=== PATIENT | male | born 1940 | race Hispanic/Latino ===

== ENCOUNTER 2018-02-02 05:00 | Emergency (ER) | payer OTHER, BC ==
[2018-02-02] MEDS ORDERED: NA CHLORIDE 0.9% 1,000 ML ONE (05:41)
[2018-02-02] MEDS ORDERED: CLINDAMYCIN 900MG/D5W 900 MG/50 ML IVPB IV ONE (05:41)
[2018-02-02] MEDS ORDERED: METHYLPREDNISOLONE 125 MG INJ ONE (05:41)
[2018-02-02 06:08] LABS: Absolute Lymphocytes (CBC) 1.8 K/uL (0.7-4.9); Absolute Monocytes 0.6 K/uL (0.1-1.3); Absolute Neutrophil 7.2 K/uL (1.8-8.0); Basophils % 0.9 % (0-1.3); Eosinophils % 3.7 % (0-4.4); Hematocrit 37.6 % (39.6-49.0); Lymphocytes % 18.2 % (15.3-44.8); MCH 32.1 pg (27.0-35.0); MCV 94.8 fL (80-100); Monocytes % 6.1 % (3.3-12.3); RBC Red Blood Cell Count 3.96 M/uL (4.33-5.43)
[2018-02-02 06:15] LABS: Potassium 4.3 mmol/L (3.5-5.1)
--- NOTE | 2018-02-02 06:27 | EDPHYS ---
Physician Documentation [facility] Name: Bernardo Downs Jr Age: 77 yrs Sex: Male : 1940 Arrival Date: 02/02/2018 Time: 05:03 Bed 17 Private MD: ED Physician Torrey Gaytan HPI: 02/02 06:04 This 77 yrs old Male presents to ER via Ambulatory with complaints of F, Feel pkl like throat is closing. 06:04 The patient presents with sore throat. The patient describes throat pain as raw. Onset: pkl The symptoms/episode began/occurred just prior to arrival, 3 hour(s) ago. Historical: - Allergies: 05:23 PENICILLINS; ak1 - Home Meds: 05:23 Metoprolol Tartrate Oral [Active]; glipizide 5 mg Oral tr24 2 tabs once daily [Active]; ak1 lisinopril 40 mg Oral tab 1 tab once daily [Active]; - PMHx: 05:23 Diabetes - NIDDM; Hypertension; Hyperlipidemia; ak1 - Immunization history:: Adult Immunizations unknown. - Social history:: Smoking status: Patient/guardian denies using tobacco. - Ebola Screening: : No symptoms or risks identified at this time. ROS: 06:04 Eyes: Negative for injury, pain, redness, and discharge. pkl 06:04 ENT: Positive for sore throat. 06:04 Neck: Negative for stiffness. 06:04 Cardiovascular: Negative for chest pain. 06:04 Respiratory: Negative for cough, shortness of breath. 06:04 Abdomen/GI: Negative for abdominal pain, nausea, vomiting, and diarrhea. 06:04 Back: Negative for acute changes. 06:04 : Negative for urinary symptoms. 06:04 MS/extremity: Negative for acute changes. 06:04 Skin: Negative for rash. 06:04 Neuro: Negative for altered mental status. Exam: 06:04 Head/Face: Normocephalic, atraumatic. Eyes: Pupils equal round and reactive to light, pkl extra-ocular motions intact. Lids and lashes normal. Conjunctiva and sclera are non-icteric and not injected. Cornea within normal limits. Periorbital areas with no swelling, redness, or edema. 06:04 ENT: Posterior pharynx: Uvula: edematous, erythema. 06:04 Neck: Exam negative for acute changes, nuchal rigidity. 06:04 Chest/axilla: Exam negative for acute changes. 06:04 Cardiovascular: Rate: normal, Rhythm: regular. 06:04 Respiratory: the patient does not display signs of respiratory distress, Respirations: normal, Breath sounds: are clear throughout. 06:04 Abdomen/GI: Exam negative for acute changes. 06:04 Back: Exam negative for acute changes. 06:04 : Exam negative for acute changes. 06:04 Musculoskeletal/extremity: Exam is negative for acute changes. 06:04 Skin: Exam negative for rash. 06:04 Neuro: Orientation: is normal, Mentation: is normal, Cranial nerves: grossly normal, Motor: is normal. Vital Signs: 05:23 BP 157 / 70; Pulse 70; Resp 18; Temp 98.6(O); Pulse Ox 98% on R/A; Weight 102.97 kg ak1 (R); Height 5 ft. 8 in. (172.72 cm) (R); Pain 6/10; 06:08 BP 152 / 76; Pulse 66; Resp 16; Temp 98.5; Pulse Ox 97% on R/A; Pain 3/10; ak1 05:23 Body Mass Index 34.51 (102.97 kg, 172.72 cm) ak1 MDM: 05:29 Patient medically screened. pkl 06:24 Data reviewed: vital signs, nurses notes, lab test result(s). pkl 02/02 05:31 Order name: CBC with Diff; Complete Time: 06:29 pkl 02/02 05:31 Order name: Chem 7; Complete Time: 06:17 pkl 02/02 05:31 Order name: Sed Rate; Complete Time: 06:29 pkl Administered Medications: 05:44 Drug: NS 0.9% 1000 ml Route: IV; Rate: 125 ml/hr; Site: right antecubital; ak1 06:29 Follow up: IV Status: Order to discontinue infusion ak1 05:44 Drug: SOLU-Medrol 125 mg Route: IVP; Site: right antecubital; ak1 06:01 Follow up: Response: No adverse reaction ak1 05:44 Drug: Clindamycin 900 mg Route: IVPB; Infused Over: 30 mins; Site: right antecubital; ak1 06:07 Follow up: IV Status: Completed infusion ak1 Disposition: 02/02/18 06:26 Discharged to Home. Impression: Acute Uvuitis. - Condition is Stable. - Prescriptions for Clindamycin HCl 300 mg Oral Capsule - take 1 capsule by ORAL route every 6 hours for 7 days; 28 capsule. - Medication Reconciliation Form, Thank You Letter, Antibiotic Education, Prescription Opioid Use form. - Follow up: Private Physician; When: 2 - 3 days; Reason: Re-evaluation by your physician. - Problem is new. - Symptoms have improved. Signatures: Dispatcher [employer] EDMS Torrey Gaytan MD MD pkl Eri Jarrell, RN RN ak1 Corrections: (The following items were deleted from the chart) 06:33 06:26 02/02/2018 06:26 Discharged to Home. Impression: Acute Uvuitis. Condition is ak1 Stable. Forms are Medication Reconciliation Form, Thank You Letter, Antibiotic Education, Prescription Opioid Use. Follow up: Private Physician; When: 2 - 3 days; Reason: Re-evaluation by your physician. Problem is new. Symptoms have improved. pkl
--- NOTE | 2018-02-02 06:27 | ER ---
Nurse's Notes [facility] Name: Bernardo Downs Jr Age: 77 yrs Sex: Male : 1940 Arrival Date: 02/02/2018 Time: 05:03 Bed 17 Private MD: Diagnosis: Acute Uvuitis Presentation: 02/02 05:19 Presenting complaint: Patient states: throat pain started at 2300 last night. pt with ak1 redness noted and swollen uvula upon triage. Transition of care: patient was not received from another setting of care. Onset of symptoms was February 01, 2018 at 23:00. Risk Assessment: Do you want to hurt yourself or someone else? Patient reports no desire to harm self or others. Initial Sepsis Screen: Does the patient meet any 2 criteria? No. Patient's initial sepsis screen is negative. Does the patient have a suspected source of infection? No. Patient's initial sepsis screen is negative. Care prior to arrival: None. 05:19 Method Of Arrival: Ambulatory ak1 05:19 Acuity: BECKY 3 ak1 Triage Assessment: 05:23 General: Appears in no apparent distress. Behavior is calm, cooperative. Pain: ak1 Complains of pain in throat. EENT: Throat is reddened with gag reflex present, uvula swelling. Neuro: No deficits noted. Cardiovascular: No deficits noted. Respiratory: No deficits noted. GI: No signs and/or symptoms were reported involving the gastrointestinal system. : No signs and/or symptoms were reported regarding the genitourinary system. Derm: No signs and/or symptoms reported regarding the dermatologic system. Musculoskeletal: No signs and/or symptoms reported regarding the musculoskeletal system. Historical: - Allergies: 05:23 PENICILLINS; ak1 - Home Meds: 05:23 Metoprolol Tartrate Oral [Active]; glipizide 5 mg Oral tr24 2 tabs once daily [Active]; ak1 lisinopril 40 mg Oral tab 1 tab once daily [Active]; - PMHx: 05:23 Diabetes - NIDDM; Hypertension; Hyperlipidemia; ak1 - Immunization history:: Adult Immunizations unknown. - Social history:: Smoking status: Patient/guardian denies using tobacco. - Ebola Screening: : No symptoms or risks identified at this time. Screenin:25 Abuse screen: Denies threats or abuse. Denies injuries from another. Nutritional ak1 screening: No deficits noted. Tuberculosis screening: No symptoms or risk factors identified. Fall Risk None identified. Assessment: 05:25 Reassessment: Patient appears in no apparent distress at this time. No changes from ak1 previously documented assessment. Patient and/or family updated on plan of care and expected duration. Pain level reassessed. Patient is alert, oriented x 3, equal unlabored respirations, skin warm/dry/pink. see triage assessment. 06:07 Reassessment: Patient appears in no apparent distress at this time. No changes from ak1 previously documented assessment. Patient states feeling better. Patient states symptoms have improved. provider notified pt stated he feels better and "can swallow again" . Vital Signs: 05:23 BP 157 / 70; Pulse 70; Resp 18; Temp 98.6(O); Pulse Ox 98% on R/A; Weight 102.97 kg ak1 (R); Height 5 ft. 8 in. (172.72 cm) (R); Pain 6/10; 06:08 BP 152 / 76; Pulse 66; Resp 16; Temp 98.5; Pulse Ox 97% on R/A; Pain 3/10; ak1 05:23 Body Mass Index 34.51 (102.97 kg, 172.72 cm) ak1 ED Course: 05:03 Patient arrived in ED. es 05:15 Eri Jarrell, RN is Primary Nurse. ak1 05:22 Triage completed. ak1 05:23 Arm band placed on Patient placed in an exam room, on a stretcher, on pulse oximetry, ak1 Patient notified of wait time. 05:25 Patient has correct armband on for positive identification. Bed in low position. Call ak1 light in reach. Side rails up X 1. Adult w/ patient. Pulse ox on. NIBP on. 05:29 Torrey Gaytan MD is Attending Physician. pkl 05:45 Initial lab(s) drawn, by me, sent to lab. Inserted saline lock: 20 gauge in right ak1 antecubital area, using aseptic technique. Blood collected. 06:08 No provider procedures requiring assistance completed. ak1 06:30 IV discontinued, intact, bleeding controlled, No redness/swelling at site. Pressure ak1 dressing applied. Administered Medications: 05:44 Drug: NS 0.9% 1000 ml Route: IV; Rate: 125 ml/hr; Site: right antecubital; ak1 06:29 Follow up: IV Status: Order to discontinue infusion ak1 05:44 Drug: SOLU-Medrol 125 mg Route: IVP; Site: right antecubital; ak1 06:01 Follow up: Response: No adverse reaction ak1 05:44 Drug: Clindamycin 900 mg Route: IVPB; Infused Over: 30 mins; Site: right antecubital; ak1 06:07 Follow up: IV Status: Completed infusion ak1 Outcome: 06:21 Condition: improved ak1 06:26 Discharge ordered by . pkluis alfredo 06:30 Discharged to home ambulatory, with family. ak1 06:30 Discharge instructions given to patient, family, Instructed on discharge instructions, follow up and referral plans. no drinking with medication, no driving heavy equipment, medication usage, Demonstrated understanding of instructions, follow-up care, medications, Prescriptions given X 2. 06:33 Patient left the ED. ak1 Signatures: Torrey Gaytan MD MD pkl Salyer, Edna es Krenek, Amber, RN RN ak1
== END 2018-02-02 06:33 | disposition home or self-care (01) ==
LOC: ER 05:00
DX: K12.2 Cellulitis and abscess of mouth (principal); E11.9 Type 2 diabetes mellitus without complications; I10 Essential (primary) hypertension; Z79.84 Long term (current) use of oral hypoglycemic drugs; Z79.899 Other long term (current) drug therapy
CPT/HCPCS: 36415; 80048; 85025; 85652; 96361; 96365; 96375; 99284; J2930; J7030

== ENCOUNTER → 2023-03-30 | Emergency (ER) | payer OTHER, BC ==
[~2023-03-30] MED LIST: FENTANYL CITR 100 MCG/2 ML ONE; IBUPROFEN 400 MG TAB ONE
--- NOTE | 2023-03-30 18:17 | RAD REPORT ---
EXAM DESCRIPTION: RAD - Elbow Left 3 View - 03/30/2023 6:05 pm CLINICAL HISTORY: Left elbow pain FINDINGS: No fracture or dislocation is seen. Several bony/calcific densities along the medial aspect of the elbow have a sclerotic border and appe ar chronic
--- NOTE | 2023-03-30 18:18 | RAD REPORT ---
EXAM DESCRIPTION: RAD - Shoulder Left 2 View - 03/30/2023 6:05 pm CLINICAL HISTORY: Left shoulder pain status post fall FINDINGS: No fracture or dislocation is seen. Osteoporosis
--- NOTE | 2023-03-30 18:41 | RAD REPORT ---
EXAM DESCRIPTION: RAD - Wrist Left 3 View - 03/30/2023 6:05 pm CLINICAL HISTORY: Left wrist pain status post injury FINDINGS: Mildly to moderately displaced fracture involves the distal radius. Bony/calcific densities within the wrist appear chronic No dislocation is seen
--- NOTE | 2023-03-30 18:56 | EDPHYS ---
Physician Documentation [facility] Name: Bernardo Downs Jr Age: 82 yrs Sex: Male : 1940 Arrival Date: 03/30/2023 Time: 15:57 Bed [id number] Private MD: ED Physician Nghia Cooper HPI: 03/30 17:05 This 82 yrs old Male presents to ER via Ambulatory with complaints of Fall cp Injury. 17:05 The patient or guardian complains of injury, pain, that is acute. The complaints affect cp the left wrist and left shoulder. 17:05 Context: resulted from a fall, after losing balance. Onset: The symptoms/episode cp began/occurred just prior to arrival. Treatment prior to arrival includes: no previous treatment. Associated signs and symptoms: Pertinent positives: decreased range of motion, deformity, Pertinent negatives: striking head, LOC. Patient reports history of left wrist fracture in the past. Historical: - Allergies: 16:35 PENICILLINS; nj1 - PMHx: 16:35 Diabetes - NIDDM; Hyperlipidemia; Hypertension; nj1 - Immunization history:: Client reports receiving the 2nd dose of the Covid vaccine. - Social history:: Smoking status: Patient denies any tobacco usage or history of. ROS: 17:10 Constitutional: Negative for body aches, chills, fever, poor PO intake, cp 17:10 Neck: Negative for pain with movement, pain at rest, stiffness, cp 17:10 Cardiovascular: Negative for chest pain, palpitations, 17:10 Respiratory: Negative for cough, shortness of breath, wheezing, 17:10 Abdomen/GI: Negative for abdominal pain, nausea, vomiting, and diarrhea, 17:10 Back: Negative for pain at rest, pain with movement, 17:10 MS/extremity: Positive for injury or acute deformity, decreased range of motion, pain, tenderness, of the left wrist, left shoulder pain, 17:10 Neuro: Negative for altered mental status, headache, numbness, syncope, weakness, 17:10 All other systems are negative, Exam: 17:15 Constitutional: The patient appears in no acute distress, alert, awake, non-toxic, well cp developed, well nourished, uncomfortable, 17:15 Head/Face: Normocephalic, atraumatic. cp 17:15 Eyes: Periorbital structures: appear normal, Conjunctiva: normal, no exudate, no injection, Lids and lashes: appear normal, bilaterally, 17:15 ENT: External ear(s): are unremarkable, Nose: is normal, Mouth: Lips: moist, Oral mucosa: moist, Posterior pharynx: Airway: no evidence of obstruction, patent, 17:15 Neck: ROM/movement: is normal, is supple, without pain, no range of motions limitations, 17:15 Chest/axilla: Inspection: normal, Palpation: is normal, no crepitus, no tenderness, 17:15 Cardiovascular: Rate: normal, Rhythm: regular, Pulses: Pulses are 2+ in left radial artery. 17:15 Respiratory: the patient does not display signs of respiratory distress, Respirations: normal, no use of accessory muscles, no retractions, labored breathing, is not present, Breath sounds: are clear throughout, no decreased breath sounds, no stridor, no wheezing, 17:15 Abdomen/GI: Exam negative for discomfort, distension, guarding, Inspection: abdomen appears normal, 17:15 Back: pain, is absent, ROM is normal, 17:15 Musculoskeletal/extremity: Extremities: grossly normal except: noted in the left wrist: decreased ROM, deformity, pain, swelling, tenderness, noted in the left shoulder: pain, tenderness, no evidence of decreased ROM, deformity, 17:15 Neuro: Orientation: to person, place \T\ time. Mentation: is normal, Motor: moves all fours, strength is normal, Sensation: is normal, Vital Signs: 16:31 BP 133 / 72; Pulse 81; Resp 18; Temp 98.2(TE); Pulse Ox 97% ; Weight 101.6 kg; Height 5 nj1 ft. 8 in. ; Pain 8/10; 19:00 BP 141 / 67; Pulse 75; Resp 16; Pulse Ox 97% ; bp 16:31 Body Mass Index 34.06 (101.60 kg, 172.72 cm) nj1 16:31 Pain Scale: Adult nj1 Procedures: 19:00 Splinting: Splint applied to left wrist using Orthoglass splint, sugartong type. cp applied by nurse. Examined by me, post splint application: neurovascular intact, Patient tolerated well. MDM: 16:50 Patient medically screened. cp 18:00 Differential diagnosis: dislocation, open fracture, closed fracture, contusion, tendon cp injury. 18:55 Data reviewed: vital signs, nurses notes, radiologic studies, plain films. cp 18:55 I considered the following discharge prescriptions or medication management in the cp emergency department Medications were administered in the Emergency Department. See MAR. Care significantly affected by the following chronic conditions: Diabetes, Hypertension. Counseling: I had a detailed discussion with the patient and/or guardian regarding the historical points, exam findings, and any diagnostic results supporting the discharge/admit diagnosis, radiology results, the need for outpatient follow up, for definitive care, a orthopedic surgeon, to return to the emergency department if symptoms worsen or persist or if there are any questions or concerns that arise at home. Response to treatment: the patient's symptoms have markedly improved after treatment, and as a result, I will discharge patient. 03/30 16:56 Order name: XRAY Wrist LEFT 3 view; Complete Time: 18:55 03/30 18:55 Interpretation: Report reviewed. 03/30 16:56 Order name: XRAY Shoulder LEFT 2 view; Complete Time: 18:55 03/30 16:56 Order name: XRAY Elbow LEFT 3 view; Complete Time: 18:55 03/30 16:56 Order name: IV Saline Lock; Complete Time: 17:28 03/30 18:31 Order name: Splint - Sugar Tong - Forearm; Complete Time: 19:14 cp 03/30 18:31 Order name: Sling; Complete Time: 19:14 cp Administered Medications: 18:14 Drug: fentaNYL (PF) IVP 25 mcg IVP once Route: IVP; Site: right antecubital; nj1 18:45 Follow up: Response: No adverse reaction bp 19:06 Drug: fentaNYL (PF) IVP 25 mcg IVP once Route: IVP; Site: right antecubital; hb 19:41 Follow up: Response: No adverse reaction; Marked relief of symptoms; RASS: Alert and lg3 Calm (0) 19:39 Drug: Ibuprofen PO 800 mg PO once Route: PO; lg3 19:39 Follow up: Response: No adverse reaction lg3 Disposition Summary: 03/30/23 18:56 Discharge Ordered Notes: Location: Home cp Problem: new cp Symptoms: have improved cp Condition: Stable cp Diagnosis - Left Distal Radius Fracture cp Followup: cp - With: Christopher Rivers MD - When: 2 - 3 days - Reason: Recheck today's complaints Followup: cp - With: Randall Salas MD - When: 2 - 3 days - Reason: Recheck today's complaints Discharge Instructions: - Discharge Summary Sheet cp - Wrist Fracture Treated With Immobilization cp Forms: - Medication Reconciliation Form cp - Thank You Letter cp - Antibiotic Education cp - Prescription Opioid Use cp - Patient Portal Instructions cp - Leadership Thank You Letter cp Prescriptions: - acetaminophen-codeine 300-30 mg Oral tablet - take 2 tablet ORAL route every 8-12 hours; 20 tablet; Refills: 0, Product cp Selection Permitted - Ibuprofen 800 mg Oral Tablet - take 1 tablet ORAL route every 8 hours As needed take with food; 30 tablet; cp Refills: 0, Product Selection Permitted Signatures: Dispatcher [employer] EDMS Nghia Pearson PA PA cp Giselle Olsen, RN RN Lima Mcdaniel RN RN lg3 Wilma Lay RN RN nj1 Cristóbal Hearn RN bp
--- NOTE | 2023-03-30 18:56 | ER ---
Nurse's Notes [facility] Name: Bernardo Downs Jr Age: 82 yrs Sex: Male : 1940 Arrival Date: 03/30/2023 Time: 15:57 Bed [id number] Private MD: Diagnosis: Left Distal Radius Fracture Presentation: 03/30 16:31 Chief complaint: Patient states: Fell while twisted, complains of left wrist pain. [facility] Coronavirus screen: Vaccine status: Patient reports receiving the 2nd dose of the covid vaccine. Ebola Screen: Patient denies travel to an Ebola-affected area in the 21 days before illness onset. Initial Sepsis Screen: Does the patient meet any 2 criteria? No. Patient's initial sepsis screen is negative. Does the patient have a suspected source of infection? No. Patient's initial sepsis screen is negative. Risk Assessment: Do you want to hurt yourself or someone else? Patient reports no desire to harm self or others. Onset of symptoms was March 30, 2023. 16:31 Method Of Arrival: Ambulatory [facility] 16:31 Acuity: BECKY 3 [facility] Triage Assessment: 18:00 General: Appears in no apparent distress. uncomfortable, Behavior is appropriate for bp age. Pain: Complains of pain in left wrist. Historical: - Allergies: 16:35 PENICILLINS; nj1 - PMHx: 16:35 Diabetes - NIDDM; Hyperlipidemia; Hypertension; nj1 - Immunization history:: Client reports receiving the 2nd dose of the Covid vaccine. - Social history:: Smoking status: Patient denies any tobacco usage or history of. Screenin:21 [facility] ED Fall Risk Assessment (Adult) History of falling in the last 3 months, bp including since admission Yes- single mechanical fall (1 pt). Abuse screen: Denies threats or abuse. Denies injuries from another. Nutritional screening: No deficits noted. Tuberculosis screening: No symptoms or risk factors identified. Assessment: 18:00 Reassessment: No changes from previously documented assessment. Patient is alert, bp oriented x 3, equal unlabored respirations, skin warm/dry/pink. Injury Description: Deformity sustained to left wrist. Vital Signs: 16:31 BP 133 / 72; Pulse 81; Resp 18; Temp 98.2(TE); Pulse Ox 97% ; Weight 101.6 kg; Height 5 nj1 ft. 8 in. ; Pain 8/10; 19:00 BP 141 / 67; Pulse 75; Resp 16; Pulse Ox 97% ; bp 16:31 Body Mass Index 34.06 (101.60 kg, 172.72 cm) nj1 16:31 Pain Scale: Adult nj1 ED Course: 16:02 Patient arrived in ED. ts1 16:35 Triage completed. nj1 16:35 Arm band placed on right wrist. nj1 16:50 Nghia Pearson PA is PHCP. cp 16:50 Nghia Cooper MD is Attending Physician. cp 17:29 Inserted saline lock: 20 gauge in right antecubital area, using aseptic technique. bc6 Blood collected. 18:07 XRAY Wrist LEFT 3 view In Process Unspecified. EDMS 18:07 XRAY Shoulder LEFT 2 view In Process Unspecified. EDMS 18:07 XRAY Elbow LEFT 3 view In Process Unspecified. EDMS 18:13 Deanna Schwab, RN is Primary Nurse. ld1 18:18 Cristóbal Hearn, NADINE is Primary Nurse. bp 18:21 Patient has correct armband on for positive identification. bp 18:55 Christopher Rivers MD is Referral Physician. cp 19:00 Referral Physician role handed off by Christopher Rivers MD cp 19:00 Randall Salas MD is Referral Physician. cp 19:00 Provided Education on: N/A. bp 19:00 Orthoglass splint: Sugar tong splint applied on left arm. bp 19:41 No provider procedures requiring assistance completed. IV discontinued, intact, lg3 bleeding controlled, No redness/swelling at site. Pressure dressing applied. Administered Medications: 18:14 Drug: fentaNYL (PF) IVP 25 mcg IVP once Route: IVP; Site: right antecubital; nj1 18:45 Follow up: Response: No adverse reaction bp 19:06 Drug: fentaNYL (PF) IVP 25 mcg IVP once Route: IVP; Site: right antecubital; hb 19:41 Follow up: Response: No adverse reaction; Marked relief of symptoms; RASS: Alert and lg3 Calm (0) 19:39 Drug: Ibuprofen PO 800 mg PO once Route: PO; lg3 19:39 Follow up: Response: No adverse reaction lg3 Medication: 19:42 VIS not applicable for this client. lg3 Outcome: 18:56 Discharge ordered by . cp 19:41 Discharged to home ambulatory, with significant other, lg3 19:41 Condition: stable 19:41 Condition: stable 19:41 Discharge instructions given to patient, Instructed on discharge instructions, follow up and referral plans. medication usage, Demonstrated understanding of instructions, follow-up care, medications, Prescriptions given X 2, 20:00 Patient left the ED. bp Signatures: Dispatcher [employer] EDMS Nghia Pearson PA PA cp Giselle Olsen RN RN Cristóbal Hearn RN RN bp Lima Mcdaniel RN RN lg3 Deanna Schwab RN RN ld1 Heike Mahoney bc6 Wilma Lay RN RN nj1 Zenaida Iverson, DAVID PAS ts1 Corrections: (The following items were deleted from the chart) 16:36 16:31 Pulse 81bpm; Resp 18bpm; Pulse Ox 97%; Temp 98.2F Temporal; 101.6 kg; Height 5 nj1 ft. 8 in.; BMI: 34.0; Pain 8/10, Adult; nj1
[2023-03-30 21:13] VITALS: BP 141/67; TEMP 98.2; O2SAT 97
== END ==
LOC: ER 15:57
PROC: 2W3DX1Z Immobilization of Left Lower Arm using Splint (ICD-10-PCS; principal; 2023-03-30)
DX: S52.502A Unspecified fracture of the lower end of left radius, initial encounter for closed fracture (principal); M25.512 Pain in left shoulder; Z88.0 Allergy status to penicillin
CPT/HCPCS: 73080; 73030; 73110; 96374; 99284; 29125; J3010 ×2